=== PATIENT | male | born 1990 | race Caucasian/White ===

== ENCOUNTER 2021-01-06 19:03 | Emergency (ER) | payer BC, OTHER ==
[~2021-01-06] VITALS: Ht 175.3 cm; Wt 74.8 kg
[~2021-01-06 19:03] MED LIST: AMOXICILLIN 50500 M1 PO; ATIVAN1 MG PO; XANAX 0.5 MG0.5 M1 PO
[2021-01-06 21:45] LABS: HEMATOCRIT 38.4 % (42.0-52.0); HEMOGLOBIN 13.5 gm/dL (14.0-18.0); MCH 33.8 pg (26.0-34.0); MCHC 35.1 g/dL (28.0-37.0); MCV 96.4 fL (80.0-100.0); RBC 3.99 mil/uL (4.50-6.00); RDW 13.1 % (10.5-14.5); WBC 11.9 thou/uL (4.0-11.0)
[2021-01-06 21:51] LABS: CALCIUM 9.3 mg/dL (8.5-10.1); CREATININE 0.8 mg/dL (0.7-1.3); POTASSIUM 3.5 mmol/L (3.5-5.1)
[2021-01-06 22:01] LABS: ALBUMIN 4.1 g/dL (3.4-5.0); TOTAL BILIRUBIN 0.9 mg/dL (0.2-1.0); TOTAL PROTEIN 7.2 g/dL (6.4-8.2)
[2021-01-06 22:45] VITALS: BP 126/76
--- NOTE | 2021-01-07 07:10 | EKG ---
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 01/07/21709 43 43 Hermann Dinh MD, FACC /EPI
== END 2021-01-06 22:46 | disposition home or self-care (01) ==
LOC: ER 19:03
PROVIDERS: Physician Assistant
DX: R07.89 Other chest pain (principal); Z98.890 Other specified postprocedural states